=== PATIENT | female | born 1995 | race African-American/Black ===

== ENCOUNTER 2023-08-02 21:51 | Observation (INO) | payer OTHER, SELFPAY ==
[2023-08-02] VITALS (20 sets, daily range): BP systolic 98–105; BP diastolic 64–76; PULSE 107–132; O2SAT 69–100
--- NOTE | 2023-08-02 21:51 | PC.NURSE ---
Pt arrives to unit via ambulance from [facility], reports cramping, nausea, and vomiting, and rates intermittent abdominal pain as 8/10.
[2023-08-02] MEDS: DEXTROSE 5%/LACTATED RINGERS 1,000 ML 999 ML IV CONT (23:15)
[2023-08-02] MEDS: FAMOTIDINE 20 MG/2 ML VIAL IV PUSH (23:28)
[2023-08-02] MEDS: ONDANSETRON INJ 4 MG/2 ML VIAL IV PUSH (23:31)
[2023-08-03] VITALS (11 sets, daily range): BP systolic 83–110; BP diastolic 54–81; PULSE 103–132; O2SAT 99–100; BMI 25.9
--- NOTE | 2023-08-03 00:03 | OBADM ---
This patient, Gary Yanez, admitted to the OB room OB Post 117 for observation. Patient/family oriented to hospital policies and general routines including ID bracelet, bed and alarms, visiting hours, pain management, procedures, bathroom and other care routines, personal items, smoking policy, room service/diet, and visiting hours. Patient/Family are encouraged to report perceived risks to care and to ask questions if they do not understand what they are told or what they should do.
--- NOTE | 2023-08-03 00:30 | PC.NURSE ---
Called Jesús Quintero CNM, update on pt, fluid administration, and pt feeling better. Orders received to discharge pt with instructions when to return to the unit, keep next scheduled appointment, and call Dr. Anguiano's office with questions or concerns.
--- NOTE | 2023-08-03 01:00 | PC.NURSE ---
Pt discharged with instructions on when to return to the unit, keep next scheduled appointment, and call Dr. Anguiano's office with any questions or concerns. No questions at this time, and pt verbalizes understanding.
--- NOTE | 2023-08-03 01:16 | PC.NURSE ---
08/02/2023 @ 2300: FHT doppled at bedside, 150-155 bpm. JAR
--- NOTE | 2023-08-04 17:01 | PM.OBTRLD ---
OB - Triage/Final Diagnosis Visit Information Date of evaluation: 08/02/23 Reason for evaluation: other (nausea and vomiting) Comments/Additional reasons for admission: I have assessed the risk for this patient, Garydennis Yanez, and determined that she would benefit from observation care.
== END 2023-08-03 01:00 | disposition home or self-care (01) ==
PROVIDERS: Admitting Provider Obstetrics & Gynecology; PCP Obstetrics & Gynecology; Visit Provider Obstetrics & Gynecology
DX: O21.2 Late vomiting of pregnancy (principal); Z3A.22 22 weeks gestation of pregnancy
CPT/HCPCS: 96361; 96374; 96375; G0378; G0379; J2405; J7121

== ENCOUNTER 2023-08-31 03:08 | Observation (INO) | payer OTHER, SELFPAY ==
[2023-08-31] VITALS (17 sets, daily range): BP systolic 96–114; BP diastolic 60–73; PULSE 83–103; O2SAT 97–100; BMI 25.4
[2023-08-31 03:39] LABS: Appearance Urine Clear (Clear); Bilirubin Urine Negative (Negative); Blood Urine Negative (Negative); Color Urine Yellow (Yellow); Glucose Urine UA Negative (Negative); Ketones Urine Negative (Negative); Leukocyte Esterase Ur Negative LEU/UL (Negative); Nitrate Urine Negative (Negative); Protein Urine Negative (Negative); Specific Grav Ur 1.007 (1.001-1.035); Urobilinogen Urine 0.2 mg/dL (<2.0)
[2023-08-31 03:41] LABS: Add Urine Microscopic? NO
--- NOTE | 2023-09-01 18:58 | PM.OBTRLD ---
OB - Triage/Final Diagnosis Visit Information Date of evaluation: 08/31/23 Reason for evaluation: other (back pain) Comments/Additional reasons for admission: I have assessed the risk for this patient, Gary Castro Beau, and determined that she would benefit from observation care. Evaluation Laboratory results: Laboratory Tests 08/31/23 03:31 Urine Color Yellow Urine Appearance Clear Urine pH 6.0 Ur Specific [place] 1.007 Urine Protein Negative Urine Glucose (UA) Negative Urine Ketones Negative Ur Blood (Man) Negative Urine Nitrate Negative Urine Bilirubin Negative Urine Urobilinogen 0.2 Leukocyte Esterase Rfl Negative
== END 2023-08-31 04:30 | disposition home or self-care (01) ==
PROVIDERS: Advanced Practice Midwife; Admitting Provider Obstetrics & Gynecology; PCP Obstetrics & Gynecology; Visit Provider Obstetrics & Gynecology
DX: O99.891 Other specified diseases and conditions complicating pregnancy (principal); M54.9 Dorsalgia, unspecified; Z3A.26 26 weeks gestation of pregnancy
CPT/HCPCS: 81003; G0378; G0379

== ENCOUNTER 2023-12-04 17:59 | Inpatient (IN) | payer OTHER, SELFPAY ==
[2023-12-04] VITALS (93 sets, daily range): BP systolic 72–124; BP diastolic 25–98; PULSE 73–134; TEMP 36.6–37.4; O2SAT 96–100
[2023-12-04 20:28] LABS: Basophils Percent Auto 0.3 % (0.2-1.2); Eosinophils Percent Auto 0.2 % (0-4.4); Hematocrit 35.9 % (37.0-47.0); Hemoglobin 12.5 g/dL (12.0-15.0); Immature Granulocyte Absolute 0.07 K/mm3 (0.00-0.031); Immature Granulocyte Percent A 0.5 % (0-0.5); Lymphocytes Absolute Auto 1.81 K/mm3 (0.9-3.2); Mean Corpuscular HGB Conc 34.8 g/dl (32-36); Mean Corpuscular Hemoglobin 30.9 pg (26-34); Mean Corpuscular Volume 88.9 fl (80-100); Mean Platelet Volume 10.3 fl (7.4-10.4); Monocytes Absolute Auto 0.7 K/mm3 (0.1-0.6); Monocytes Percent Auto 5.7 % (2.6-8.5); Neutrophils Absolute Auto 10.2 K/mm3 (1.3-6.7); Neutrophils Percent Auto 79.3 % (45.5-73.1); Platelet Count Result 254 k/mm3 (150-375); Red Blood Count 4.04 M/mm3 (4.2-5.4); Red Cell Distribution Width 13.2 % (11.5-14.5); White Blood Count 12.9 K/mm3 (4.5-10.0)
[2023-12-04] MEDS: LACTATED RINGERS 500 ML 999 ML IV CONT (20:33)
--- NOTE | 2023-12-04 20:37 | LDADM ---
This patient, Gary Yanez, was admitted to Labor/Delivery/Recovery 105 on 12/04/23 at 19:59. Plans for labor, pain management and were discussed with patient. Patient/family oriented to hospital policies and general routines including ID bracelet, bed and alarms, visiting hours, pain management, procedures, bathroom and other care routines, personal items, smoking policy, room service/diet and guest tray routines, infant security routines, and visiting hours. Patient/Family are encouraged to report perceived risks to care and to ask questions if they do not understand what they are told or what they should do. See OBIX for further documentation.
[2023-12-04 20:56] LABS: Rapid Plasma Reagin Non-Reactive (NonReactive)
--- NOTE | 2023-12-04 21:14 | WPDANESEPP ---
Anes - Eval Pre Procedure Procedure: Labor Epidural Date/Time: 12/04/23 21:14 Surgeon: Janelle Preop Diagnosis: Labor Pain Pre Op Diagnosis: Contractions Patient Data Age: 28 Gender: F Height: 1.57 m Weight: 74.5 kg Last Vital Signs Temp 37.4 C 12/04/23 18:30 Pulse 104 H 12/04/23 21:12 BP 102/62 12/04/23 21:12 Pulse Ox 100 12/04/23 21:11 O2 Del Method Room Air 12/04/23 20:36 Allergies Allergy/AdvReac Type Severity Reaction Status Date / Time No Known Allergies Allergy Verified 11/11/23 12:34 Home Medications Medication Instructions Recorded Confirmed Type ferrous sulfate 325 mg (65 mg 325 mg PO DAILY 11/11/23 12/04/23 History iron) tablet vits no.126-ferrous fum 1 tablet PO DAILY 11/11/23 12/04/23 History 28 mg iron-folic acid 800 mcg tablet (Classic ) Laboratory Tests 12/04/23 20:24 WBC 12.9 H K/mm3 (4.5-10.0) RBC 4.04 L M/mm3 (4.2-5.4) Hgb 12.5 g/dL (12.0-15.0) Hct 35.9 L % (37.0-47.0) MCV 88.9 fl (80-100) MCH 30.9 pg (26-34) MCHC 34.8 g/dl (32-36) RDW 13.2 % (11.5-14.5) Plt Count 254 k/mm3 (150-375) MPV 10.3 fl (7.4-10.4) Immature Gran % (Auto) 0.5 % (0-0.5) Neut % (Auto) 79.3 H % (45.5-73.1) Lymph % (Auto) 14.0 L % (18.3-44.2) [place] % (Auto) 5.7 % (2.6-8.5) Eos % (Auto) 0.2 % (0-4.4) Baso % (Auto) 0.3 % (0.2-1.2) Lymph # (Auto) 1.81 K/mm3 (0.9-3.2) [place] # (Auto) 0.7 H K/mm3 (0.1-0.6) Eos # (Auto) 0.0 K/mm3 (0-0.3) Baso # (Auto) 0.0 K/mm3 (0.0-0.1) Abs Immat Gran (auto) 0.07 H K/mm3 (0.00-0.031) Absolute Neuts (auto) 10.2 H K/mm3 (1.3-6.7) Absolute Nucleated RBC 0.000 K/mm3 (0.0-0.012) Nucleated RBC % 0.0 % (0.0-0.2) RPR Non-reactive (NonReactive) HIV 1&2 Ab/P24 Ag 4thGn Pending Blood Type O Positive Antibody Screen Pending : gestational age (WALTER 12/06/23, ) Patient hx anesthesia problems: none Family hx anesthesia problems: none Results Review: All pre-operative results and documents have been reviewed as part of the pre-operative evaluation. [facility] Family History Family History Grandparent Diabetes mellitus Other Lung cancer Social History Social History Substance use: never Spiritual care concerns: No Exam Day of Procedure 12/04/23 21:14 Patient weight: normal Heart: regular rate and rhythm Lungs: normal air movement Airway: Mallampati scale class II Neurological: alert and oriented
[2023-12-04] MEDS: LACTATED RINGERS 1,000 ML 125 ML IV CONT (21:15)
[2023-12-04 21:21] LABS: HIV 1/2 Ab P24 Ag Result Negative (Negative)
[2023-12-04] MEDS: PHENYLEPHRINE 1,000 MCG/10 ML SYRINGE 100 MCG IV PUSH ×2 (21:36→21:41)
[2023-12-04] MEDS: ePHEDrine sulfate INJ 50 MG/ML AMPUL IV PUSH (22:17)
[2023-12-05] VITALS (135 sets, daily range): BP systolic 92–126; BP diastolic 39–96; PULSE 76–162; RESP 16; TEMP 36.4–38; O2SAT 94–100
[2023-12-05] MEDS: LACTATED RINGERS 1,000 ML 125 ML IV CONT (03:24)
[2023-12-05] MEDS: ONDANSETRON INJ 4 MG/2 ML VIAL IV PUSH (03:53)
--- NOTE | 2023-12-05 04:43 | WPDHPUPDATE1 ---
History and Physical Update Update Date/Time: 12/05/23 04:43 28-year-old 0 at term who presented in labor. Artificial rupture membranes was performed when she was complete. Fluid was clear. Complete, reassuring status. Expected management. History and Physical has been reviewed, including an updated exam of the patient. There are NO changes in the patient's condition. Risks, benefits, and alternatives have been discussed and questions answered. Patient agrees to proceed with procedure.
[2023-12-05] MEDS: OXYTOCIN 30 UNITS/NS 500 ML 30 UNITS/500 ML BAG 999 UNITS IV CONT (07:47)
--- NOTE | 2023-12-05 07:58 | PM.OBPRVD ---
OB - Vaginal Delivery Note Procedure Delivery date: 12/05/23 Induction method: None Delivery augmentation: Rupture of Membranes Delivery monitor: External FHT and External Uterine Route of delivery: Episiotomy description: None Laceration Description: None Specimen: Yes Quantitative Blood Loss (ml): 100 Anesthesia type: Epidural Disposition: Floor Complications: Other complications (meconium, associate manager affiliate marketing at bs) Baby Date of : 12/05/23 Time of : 07:46 Gestational Age by Date: 39 gender: Male presentation: vertex position: Right Occiput Anterior Placenta delivery description: Spontaneous Cord Vessel Description: 3 Vessels score one minute: 5 score five minutes: 8 Narrative: baby delivered without difficulty, to warmer for evaluation, associate manager affiliate marketing at bs
[2023-12-05] MEDS: OXYTOCIN 30 UNITS/NS 500 ML 30 UNITS/500 ML BAG 125 UNITS IV CONT (08:15)
[2023-12-05] MEDS: IBUPROFEN 600 MG TABLET PO ×3 (09:20→23:58)
[2023-12-05] MEDS: BENZOCAINE 20% AER SPR (*SP) 56 GM CAN 1 SPRAY TOPICAL (10:03)
[2023-12-05] MEDS: WITCH HAZEL 40 PADS 1 PAD TOPICAL (10:03)
--- NOTE | 2023-12-05 10:42 | OBPPTRN ---
Patient transferred to post room #286 via wheelchair. Support person present. Oriented to unit, room, information board, rooming in, admission packet and security measures. Patient verbalizes understanding.
[2023-12-05] MEDS: ACETAMINOPHEN 325 MG TABLET 650 MG PO (11:20)
[2023-12-05] MEDS: DOCUSATE SODIUM 100 MG CAPSULE PO (16:19)
[2023-12-06 03:50] VITALS: BP 126/78; PULSE 81; RESP 18; TEMP 36.8
[2023-12-06] MEDS: ACETAMINOPHEN 325 MG TABLET 650 MG PO ×2 (03:50→18:36)
[2023-12-06 04:06] LABS: Hematocrit 34.2 % (37.0-47.0); Hemoglobin 11.7 g/dL (12.0-15.0)
--- NOTE | 2023-12-06 07:52 | PM.OBPNVD ---
OB - PN: Subj Subjective Date/time seen: 12/06/23 07:52 Patient comments: no complaints, pain well controlled, incisional pain, tolerating diet and flatus present OB - PN: Obj Data Labs 12/06/23 03:43 Labs: Laboratory Results - last 24 hr 12/06/23 03:43 Hgb 11.7 L Hct 34.2 L OB - PN A/P Plan day: 1 Plan: routine care Comments: No problems, routine care Time Spent With Patient Time: Total time spent is greater than 50% in coordination of care (as documented) at patient's floor/unit and/or counseling patient: Exam Const: General: comfortable, no acute distress and alert Resp: Effort & Inspection: normal respiratory effort Auscultation: no crackles, no rales and no rhonchi Cardio: Rate: regular rate Heart sounds: no click, no murmurs and no rubs GI: Inspection: non-distended GI Palp: No Tenderness to palpation present (GI) Auscultation: normal bowel sounds Other: Incision - CDI Extrem: General: normal to inspection, no pedal edema and no calf tenderness
[2023-12-06] MEDS: MULTIVIT/MIN/PREN/FOL AC/IRON TABLET 1 TAB PO (09:40)
[2023-12-06] MEDS: DOCUSATE SODIUM 100 MG CAPSULE PO ×2 (09:40→16:32)
[2023-12-06 09:45] VITALS: BP 114/67; PULSE 88; RESP 16; TEMP 36.9; O2SAT 99
[2023-12-06] MEDS: IBUPROFEN 600 MG TABLET PO (18:36)
--- NOTE | 2023-12-06 18:45 | PC.NURSE ---
1844- This RN went to introduce myself. Ask pt if she has been tracking feedings and stools on flowsheet, she stated that she is tracking them on her phone and that we are putting them on the paper because it is confusing to me. This RN offered to explain flowsheet however, pt refused.This RN also explained that it was near time to feed again and pt stated I'm not feeding til around 193, when he sleeping, he aint hungry! Again this RN attempeted to explain feeding frequency for bottle fet infant, however pt was on the phone with someone and stated, Ok, whatever. and rolled over to her side.
[2023-12-06 19:30] VITALS: BP 113/64; PULSE 78; RESP 16; TEMP 36.8
[2023-12-07] MEDS: IBUPROFEN 600 MG TABLET PO (07:48)
[2023-12-07] MEDS: ACETAMINOPHEN 325 MG TABLET 650 MG PO (07:49)
[2023-12-07] MEDS: DOCUSATE SODIUM 100 MG CAPSULE PO (07:50)
[2023-12-07 08:00] VITALS: BP 105/70; PULSE 88; RESP 16; TEMP 36.8; O2SAT 96
--- NOTE | 2023-12-07 08:37 | PM.OBPNVD ---
OB - PN: Subj Subjective Date/time seen: 12/07/23 08:37 Patient comments: no complaints, pain well controlled and tolerating diet OB - PN: Obj Data Labs 12/06/23 03:43 OB - PN A/P Plan day: 2 Plan: routine care and discharge home Time Spent With Patient Time: Total time spent is greater than 50% in coordination of care (as documented) at patient's floor/unit and/or counseling patient: Exam Const: General: comfortable and no acute distress Resp: Effort & Inspection: normal respiratory effort Auscultation: no rales, no rhonchi and no wheezes Cardio: Rate: regular rate Heart sounds: no click, no murmurs and no rubs GI: GI Palp: Yes Soft to palpation and No Tenderness to palpation present (GI) Auscultation: normal bowel sounds Extrem: General: normal to inspection, no pedal edema and no calf tenderness
--- NOTE | 2023-12-07 08:39 | PM.OBDSVD ---
DS: Admitting Diagnosis Discharge Date December 07, 2023 Admitting Diagnosis term , labor DS: Discharge Diagnosis Discharge Diagnosis (1) Term delivered: Code(s): O80 - Encounter for full-term uncomplicated delivery Status: Acute OB - DS: Summary OB Procedures : None OB Procedures Intrapartum: Spontaneous Vag Delivery OB Procedures: : None Peripartum Data Laceration Description: None Episiotomy description: None Time Spent with Patient Time attestation: Total time spent providing and/or coordinating discharge services: DS: Data Data Completed and Pending Pending studies at discharge: Pending at discharge 12/05/23 07:48 Surgical [PTH] Routine Discharge Plan Discharge Discharging Clinician: Timmy Luis Patient Disposition: Home, Self-Care Activity: pelvic rest Diet: regular Patient Instructions: Antibiotic Form Stand Alone Forms: General Discharge Information Follow-up/Referrals: Timmy Luis MD [Physician] - Discharge Medications: Continued ferrous sulfate 325 mg (65 mg iron) Tablet 325 mg PO DAILY Classic 28 mg iron- 800 mcg Tablet 1 tablet PO DAILY Date of admission: 12/04/23 20:15 Primary Care Provider: UNKNOWN,DOCTOR Admitting Provider: Timmy Luis Attending physician on admission: Timmy Luis Condition: Stable
--- NOTE | 2023-12-07 12:49 | PC.NURSE ---
1245 care plan put in by mistake, wrong patient. Please disregard.
[2023-12-08 11:37] VITALS: BP 128/83; PULSE 74; RESP 18; TEMP 36.8; O2SAT 100
== END 2023-12-07 12:10 | disposition home or self-care (01) | DRG 560 ==
LOC: ANHLDR 22:12 → ANHOB2 12-05 11:25
PROVIDERS: Advanced Practice Midwife; Admitting Provider Obstetrics & Gynecology; Visit Provider Obstetrics & Gynecology
DX: O75.2 Pyrexia during labor, not elsewhere classified (principal); O77.0 Labor and delivery complicated by meconium in amniotic fluid; O63.1 Prolonged second stage (of labor); Z3A.39 39 weeks gestation of pregnancy; Z37.0 Single live birth
CPT/HCPCS: 36415; 85014; 85018; 85025; 86592; 86703; 86850; 86900; 86901; 88307; A9270; G0378; G0379; G0432; J2371; J2405; J2590; J2795; J7120

== ENCOUNTER 2024-05-09 10:40 | Emergency (ER) | payer OTHER, SELFPAY ==
--- NOTE | ~2024-05-09 | XR_ITS ---
EXAMINATION: XR knee RT 3V DATE: 05/09/2024 13:29 INDICATION: Right knee pain, swelling and limited range of motion post injury TECHNIQUE: Anteroposterior, 2 oblique and crosstable lateral views of the right knee were obtained COMPARISON: None. FINDINGS: Alignment is normal. No fracture. There is at least mild joint space narrowing at the medial compart ment which could be underestimated on nonweightbearing imaging. Moderate-sized right knee joint effus ion without layering lipohemarthrosis. Soft tissues are unremarkable. IMPRESSION: 1. Moderate-sized right knee joint effusion. No acute osseous abnormality. 2. At least mild joint space narrowing in the medial compartment the right knee could be due to osteo arthritis and cartilage loss or potentially medial meniscal tear or extrusion. Reviewed, dictated and finalized at location B. INE TOOL TECHNOLOGY INSTRUCTOR IMPRESSION: 1. Moderate-sized right knee joint effusion. No acute osseous abnormality. 2. At least mild joint space narrowing in the medial compartment the right knee could be due to osteoarthritis and cartilage loss or potentially medial menisc al tear or extrusion.
[2024-05-09 11:29] VITALS: BP 125/79; PULSE 96; RESP 18; TEMP 36.7; O2SAT 100
--- OUTSIDE RECORDS SUMMARY | 2024-05-09 12:04 | XMS_ITS | CONTINUITY OF CARE DOCUMENT ---
Author Name sandra flores Address Unknown Organization [facility] Address [address] [place] [address] Phone [phone] Care Team Providers Care Community Re[employer]ment Act Officer Name Role Phone Toshia Peterson MD Unavailable Toshia Peterson MD Unavailable [phone] INSURANCE PROVIDERS Payer name Policy type / Coverage type [place] [employer] [place] Medicaid [id number]
--- OUTSIDE RECORDS SUMMARY | 2024-05-09 12:04 | XMS_ITS | Clinical Summary ---
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 Gender Identity Not on file Sexual Orientation Not on file Last Filed Vital Signs Vital Sign Reading Time Taken Comments Blood Pressure 125/74 12/17/2022 9:54 PM CDT Pulse 118 12/17/2022 9:54 PM CDT Temperature 36.5 C (97.7 F) 12/17/2022 9:54 PM CDT Respiratory Rate 18 12/17/2022 9:54 PM CDT Oxygen Saturation 98% 12/17/2022 9:54 PM CDT Inhaled Oxygen Concentration - - Weight 57.2 kg (126 lb) 12/17/2022 9:54 PM CDT Height 157.5 cm (5' 2 ) 12/17/2022 9:54 PM CDT Body Mass Index 23.05 12/17/2022 9:54 PM CDT Plan of Treatment Health Maintenance Due Date Last Done Comments Hepatitis C Virus (HCV) Screening 1996 Pap Smear 2017 Influenza Immunization (#1) 2023 SARS-COV-2 Immunization ( season) 2023 04/03/2022, 03/12/2022 Respiratory Syncytial Virus (RSV) Immunization (Adult) (1 - 1-dose 75+ series) 06/03/2071 Hepatitis B Immunization Completed 997, 1996, 1996 DTaP/Tdap/Td Immunization Discontinued 2006, 07/09/2001, 11/23/1997, Additional history exists TdaP Immunization Completed 12/11/2006 Human Papillomavirus (HPV) Immunization Discontinued 09/08/2007, 02/16/2007, 12/11/2006 Meningococcal Immunization (ACWY) Aged Out 11/21/2010 No longer eligible based on patient's age to complete this topic Pneumococcal Immunization Combined Aged Out No longer eligible based on patient's age to complete this topic Rotavirus Immunization Aged Out No lo nger eligible based on patient's age to complete this topic Insurance MEDICAID [place] Care Teams Box Spring Frame Builder Relationship Specialty Start Date End Date Provider, None [place] PCP - General 10/25/21
--- OUTSIDE RECORDS SUMMARY | 2024-05-09 12:04 | XMS_ITS | Data Portability ---
Author Organization [facility] Address [address] [place] [address] Assessment No assessment recorded. Plan of Treatment Reminders Order Date Submit Date Provider Last Modified By Organization Details Last Modified Time Details Appointments None record ed. Lab None record ed. Referral None record ed. Procedures None record ed. Surgeries None record ed. Imaging None record ed. Medication Orders None record ed. Patient TargetsNo targets recorded. Patient InstructionsNo instructions recorded. Reason for Referral None Reported. Results Created Date Observation Date Name Description Value Unit Range Abnormal Flag Note LastModifiedBy Organization Detail LastModifiedTime 10/28/19 24 10/28/2023 CULTU RE: URINE result report SEE RESULT S BELOW Test: Cultu re: Urine Speci men Sourc e: Urine - Clean Catch Speci men Type: Urine Speci men Date: 2023 1652 Resul t Date: 2023 0443 Resul t Statu s: Final resul t Abnor mal: No Resul ting Lab: [facility] [address] [facility] [address] Tel: CULTU RE ----- ----- ----- --- No growt h in 1 day (dete ction level of 10,00 0 colon ies / ml.) Not Available [facility] (Lab) [address], [place], [address], 10/30/2023 07:43:20 11/11/19 24 11/11/2023 CULTU RE: GROUP B STREP SCREE N result report SEE RESULT S BELOW Test: Cultu re: Group B Strep Scree n - Vagin al/Re ctal Speci men Sourc e: Vagin a/Rec marky Speci men Type: Vagin al/Re ctal Speci men Date: 2023 1134 Resul t Date: 2023 1356 Resul t Statu s: Final resul t Abnor mal: No Resul ting Lab: [facility] [address] [facility] [address] [facility] [address] [facility] [address] Tel: CULTU RE ----- ----- ----- --- No Group B strep isola ines at 2 days (essence ctive broth enhan cemen t) Not Available [facility] (Lab) [address], [place], [address], 11/14/2023 15:00:57 Result Notes None recorded. Problems Name Problem SNOMED Code Status Onset Date Resolution Date Notes Provider Name and Address Organization Details Recorded Time [id number] Active 024 Marisela De Luna [facility] 17:30:29 Problem Notes None recorded. Procedures Surgical History Date Name Laterality Status Provider Name and Address Organization Details Recorded Time 05/06/2023 Date of Last Pap Smear completed Gloria Blum [facility] 12/02/2023 09:18:55 Imaging Results None recorded. Procedure Notes None recorded. Medical Equipment None Reported. Allergies No known drug allergies Medications Name Sig Start Date Stop Date Status Note LastModified by Organization Details LastModified Time famotidine 20 mg tablet TAKE 1 TABLET BY MOUTH TWICE A DAY 10/28 completed Not Available Not Available Not Available iron active Not Available Not Availa ble Not Available active Not Available Not Avai lable Not Available Vitals Date Recorded Body height Body mass index (BMI) Body weight Systolic blood pressure Diastolic blood pressure Provider Name and Address Organization Details Last Updated DateTime 11/11/2023 157.48 cm 29.3 kg/m2 20042.78 g 125 mm[Hg] 80 mm[Hg] Marisela De Luna [facility] 4 10:37:53 Date Recorded Body height Body mass index (BMI) Body weight Systolic blood pressure Diastolic blood pressure Provider Name and Address Organization Details Last Updated DateTime 11/20/2023 157.48 cm 29.7 kg/m2 68181.12 g 121 mm[Hg] 82 mm[Hg] [facility] 4 12:12:23 Date Recorded Body height Body mass index (BMI) Body weight Systolic blood pressure Diastolic blood pressure Provider Name and Address Organization Details Last Updated DateTime 11/25/2023 157.48 cm 30 kg/m2 81911.43 g 118 mm[Hg] 74 mm[Hg] [facility] 4 10:14:06 Date Recorded Body height Body mass index (BMI) Body weight Systolic blood pressure Diastolic blood pressure Provider Name and Address Organization Details Last Updated DateTime 12/02/2023 157.48 cm 30.2 kg/m2 80404.74 105 g 114 mm[Hg] 76 mm[Hg] [facility] 4 10:29:41 Date Recorded Body height Body mass index (BMI) Body weight Systolic blood pressure Diastolic blood pressure Provider Name and Address Organization Details Last Updated DateTime 02/01/2024 157.48 cm 26.3 kg/m2 36685.3 g 117 mm[Hg] 73 mm[Hg] [facility] 4 12:58:12 Social History Question Answer Notes LastModified by Organizat ion Details LastModified Time Tobacco Smoking Status Never Smoker [facility] 05/06/2023 12:37:40 Do You Have An Advance Directive? No [email or web address] Information n ot available 02/01/2024 What Is Your Level Of Alcohol Consumption? Occasional Information not available 05/06/2023 Are You Blind Or Do You Have Difficulty Seeing? No Information n ot available 05/06/2023 What Is Your Level Of Caffeine Consumption? Moderate Information not available 05/29/2023 How Much Tobacco Do You Chew? None Information not available 05/06/2023 In The 14 Days Before Symptom Onset, Have You Had Close Contact With A Laboratory-confirm ed COVID-19 While That Case Was Ill? No Information n ot available 05/06/2023 In The 14 Days Before Symptom Onset, Have You Had Close Contact With A Person Who Is Under Investigation For COVID-19 While That Person Was Ill? No Information not available 05/06/2023 Have You Been To An Area Known To Be High Risk For COVID-19? No Information not available 05/06/2023 Are You Deaf Or Do You Have Serious Difficulty Hearing? No Information not available 05/06/2023 What Type Of Diet Are You Following? REGULAR Information n ot available 05/06/2023 What Is The Highest Grade Or Level Of School You Have Completed Or The Highest Degree You Have Received? [id number] Information not available 05/06/2023 Are There Any Guns Present In Your Home? No Information not available 05/06/2023 Do You Use Your Seat Belt Or Car Seat Routinely? Yes Information not available 02/01/2024 Do You Have Smoke And Carbon Monoxide Detectors In Your Home? Yes Information not available 05/06/2023 How Much Tobacco Do You Smoke? No Information not available 05/06/2023 Do You Feel Stressed (tense, Restless, Nervous, Or Anxious, Or Unable To Sleep At Night)? [id number] Information not available 05/29/2023 Do You Use Any Illicit Or Recreational Drugs? No Information not available 05/06/2023 Have You Used IV Drugs? No Information not available 05/06/2023 Sex: Unknown Functional Status Question Answer Note LastModified by Organizat ion Details LastModified Time Do you have difficulty walking or climbing stairs? No Information not available 05/06/2023 Are you able to walk? YESWOREST Information not available 05/06/2023 Are you able to care for yourself? Yes Information not available 05/06/2023 Do you have difficulty dressing or bathing? No Information not available 05/06/2023 What is your exercise level? Moderate Information not available 05/06/2023 Mental Status None recorded. Family History Relationship Description Onset Age of this Age Resolved Age Notes LastModified by Organization Details LastModified Time Maternal Grandmother Malignant neoplasm of brain [email or web address] Not available 2023 12:51:17 Maternal Grandfather Malignant tumor of lung [email or web address] Not available 2023 14:16:26 Maternal Aunt Malignant tumor of breast [email or web address] Not available 2023 14:16:26 Medical History Condition Response Asthma Y Gynecological History Statement/Question Response Flow Moderate Date of LMP 01/11/2024 N Was last menstrual period normal Y STIs/STDs N HPV Vaccine Y Duration of Flow (days) 5 Current Control Method Other Sexually Active? Y Menses Monthly Y Age of first menstrual cycle 15 Date of Last Pap Smear 05/06/2023 Sexual Problems? N LMP Definite N Obstetrics History GPAL:G 3 P 1 0 2 1 Type Value Full Term 1 Induced 1 Spontaneous 1 Living 1 Total 3 Past Encounters Encounter ID Performer Location Encounter Start Date Encounter Closed Date Diagnosis/Indication Diagnosis SNOMED-CT Code Diagnosis ICD10 Code Diagnosis Note [id number] Iva Kennedy [facility] [address],[facility] [place] [address] 05/06/2023 11:29:45 05/06/2023 12:13:23 [id number] WILLIAMS ABRAHAM MD [facility] [address] [address] 05/06/2023 11:30:14 05/10/2023 00:05:03 test positive 384679887 Z32.01 1. Exam today within normal limits.2. Ultrasound today confirms GA and viability. EDC . GC/Clamydi a testing done: will f/u as indicated. 4. ACOG guidelines and plan of care for reviewed with patient. All questions answered.5 . Return to office at 12 weeks for new OB visit6. Will need new OB labs at next visit.7. Genetic screening: desires. [id number] Iva Kennedy [facility] [address] [address] 05/29/2023 12:24:12 05/29/2023 14:37:58 screening 170714184 Z36.82 Z3A.12 [id number] MD Pamela [facility] [address],[place] [address] 05/29/2023 12:24:34 06/04/2023 13:34:21 Routine care 828741079 Z34.90 [id number] MD Pamela ROMERO [address],[place] [address] 06/24/2023 09:50:03 06/24/2023 10:25:31 Routine care 983998505 Z34.90 [id number] [facility] [address],[place] [address] 07/22/2023 10:57:32 07/22/2023 12:08:47 screening for malformation 178704171 Z36.3 Z3A.20 [id number] MD Pamela ROMERO [address],[place] [address] 07/22/2023 10:58:21 07/23/2023 06:28:39 Lightheadedness 062251579 R42 Gestation period, 20 weeks 42528786 Z3A.20 [id number] WILLIAMS ABRAHAM MD [facility] [address] [address] 08/19/2023 10:51:45 08/19/2023 12:23:39 Gastroesophageal reflux disease 988323119 K21.9 Lightheadedness 02620405 8 R42 Gestation period, 24 weeks 630399774 Z3A.24 MD Pamela ROMERO [address] [address] 09/16/2023 14:17:09 09/16/2023 15:08:44 Routine care 507219623 Z34.90 [id number] MD Pamela ROMERO [address] [address] 09/29/2023 15:46:58 09/29/2023 16:33:21 Anemia of 84000317 O99.019 - Hgb 10.4 > 10.9- continue PO Fe Gestation period, 30 weeks 05800430 Z3A.30 [id number] MD Pamela ROMERO [address],[place] [address] 10/14/2023 10:04:52 10/14/2023 10:36:34 Anemia of 48215238 O99.019 - Hgb 10.4 > 10.9- continue PO Fe Gestation period, 32 weeks 0173719 Z3A.32 - continue PNV [id number] WILLIAMS ABRAHAM MD [facility] [address],[place] [address] 10/28/2023 10:09:29 10/28/2023 10:55:31 Urinary symptoms 442633539 R39.9 Gestation period, 34 weeks 11675808 Z3A.34 [id number] WILLIAMS ABRAHAM MD [facility] [address],[place] [address] 11/11/2023 10:21:45 11/11/2023 11:10:35 Routine care 675939996 Z34.90 - continue PNV [id number] MD Pamela ROMERO [address] [address] 11/20/2023 11:59:14 11/20/2023 12:36:11 Routine care 733569988 Z34.90 - continue PNV [id number] WILLIAMS ABRAHAM MD [facility] [address],[place] [address] 11/25/2023 10:05:38 11/25/2023 11:05:53 Routine care 865813249 Z34.90 - continue PNV [id number] MD Rubi [place] [address],[place] [address] 12/02/2023 10:19:36 12/02/2023 10:50:07 Routine care 227507942 Z34.90 - continue PNV- induction scheduled [id number] MD Pamela ROMERO [address] [address] 02/01/2024 12:51:10 02/01/2024 14:15:35 care 872447787 Z39.2 S/p 8 weeks ago here today for a visit.1. Patient recovering well2. Plans to continue formula feeding3. Interested in condoms for contracept ion at this time. Risks, benefits, and alternativ es reviewed with the patient4. Patient instructed to follow up in 12 months for well woman exam unless need arises prior Health Concerns Section Related Observation LastModified by Organization Detai ls LastModified Time None Recorded Concern Status LastModified by Organization Details LastModified Time None Recorded Advance Directives Directive N: Payers Encounter Date Sequence Insurance Name Policy Number Policy Navarro Covered Member ID Navarro Member ID Guarantor Name 11/11/2023 1 [facility] (MEDICAID HMO) [id number] Gary McSwyne [id number] Gary McSwyne 11/20/2023 1 [facility] (MEDICAID HMO) [id number] Gary McSwyne [id number] Gary McSwyne 11/25/2023 1 [facility] (MEDICAID HMO) [id number] Gary McSwyne [id number] Gary McSwyne 12/02/2023 1 [facility] (MEDICAID HMO) [id number] Gary McSwyne [id number] Gary McSwyne 02/01/2024 1 [facility] (MEDICAID HMO) [id number] Gary McSwyne [id number] Gary McSwyne Notes Date Note Type Note Provider Name and Address Organization Details Recorded Time 02/01/2024 text/html S/P on 12/04 at 39 weeks gestation. was uncomplicated. Complications with delivery: none. Patient denies any specific problems since delivery. Patient overall feeling well. Patient is formula feeding without problems. Has not had a period yet. No bleeding. Bowel and bladder function are normal. Pap due 2026. Denies any signs or symptoms of depression. Is coping with parenting well. Patient has not been sexually active since delivery. Patient is not interested in hormonal contraception at this time. WILLIAMS ABRAHAM MD [address], [place], [address], [place] [facility] 02/01/2024 14:13:04 OBGyn Episode Ob Episode Information Episode Created Date Number of Fetuses Patient Bloodtype Patient rh Status Prepregnancy Weight lbs Domestic Partner Domestic Partner Phone Father Name Roller Operator Status 05/06/19 24 1 CLOSED Fetus Data First Name Last Name Admitted to NICU Weight (g) Sex Living Outcome Pediatric Complications Fetus ID Race Codes Race Delivery Type , Spontane ous [id number] Darrell Calculation Initial Darrell Date Initial Exam Date Initial Exam Provider Initial Ultrasound Date Last Menstrual Period Date Ultra Sound Weeks Gestation 0 Eighteen To Twenty Week Darrell Update Ultra Sound Date Fundal Height At Umbil Quickening Date Ultra Sound Latest Weeks Gestation Final Darrell Confirmed By Final Darrell Confirmed Date Final Darrell Date Ultra Sound Latest Days Gestation 0 0 Menstrual History Last Menstrual Date Menses Monthly On Bcp Conception Prior Menses Frequency Hcg Plus Date Menarche Onset Age Delivery Information Delivery Date Delivery Type Labor Anesthesia Weeks Gestation Incision Type Labor Labor Length Hrs Delivered By Post Complications Tubal Sterilization Discharge Date Comments 3 Discharge Information Feeding Method Contraceptive Method Maternal HG B and HCT Levels Ob Episode Information Episode Created Date Number of Fetuses Patient Bloodtype Patient rh Status Prepregnancy Weight lbs Domestic Partner Domestic Partner Phone Father Name Roller Operator Status 06/03/19 24 1 130 CLOSED Fetus Data First Name Last Name Admitted to NICU Weight (g) Sex Living Outcome Pediatric Complications Fetus ID Race Codes Race Delivery Type 3739.86 604 M true Full Term [id number] Vaginal Delivery Darrell Calculation Initial Darrell Date Initial Exam Date Initial Exam Provider Initial Ultrasound Date Last Menstrual Period Date Ultra Sound Weeks Gestation 12/06/2023 06/03/2023 05/06/2023 03/02/2023 9 Eighteen To Twenty Week Darrell Update Ultra Sound Date Fundal Height At Umbil Quickening Date Ultra Sound Latest Weeks Gestation Final Darrell Confirmed By Final Darrell Confirmed Date Final Darrell Date Ultra Sound Latest Days Gestation 0 [email or web address] 06/04/2023 12/06/19 24 0 Pre- Flowsheet Flowsheet Date 05/29/2023 Leiva Score Blood Edema Fundus Height Fundus Units Glucose Ketones Leukocytes Nitrite Labor Signs Protein Cervic Dilation Cervic Effacement Cervic Station Type Weight in lbs Pre/Post Dialysis Refused Weight 133.819734851312 BP Diastolic BP Location Tested BP Systolic BP Type 80 114 Fetus Heart Rate Present A 154 Fetus Movement Comments Presents to establish prenat al care. so far uncomplicated. No cramping or bleeding. Some nausea, overall controlled. PMH/PSH negative. NB/NT wnl today. Desires NIPT, will draw with new OB labs today. RTC 4 weeks for routine OB care. Flowsheet Date 06/24/2023 Leiva Score Blood Edema Fundus Height Fundus Units Glucose Ketones Leukocytes Nitrite Labor Signs Protein Cervic Dilation Cervic Effacement Cervic Station neg none 16 none trace Type Weight in lbs Pre/Post Dialysis Refused Weight 136.527163070638 BP Diastolic BP Location Tested BP Systolic BP Type 74 L arm 114 sitting Fetus Heart Rate Present A 150 Fetus Movement A No Comments Doing well, no cramping or b leeding. LR male NIPT! Other OB labs wnl. Discussed anatomy US for next visit. RTC 4 weeks Flowsheet Date 07/22/2023 Leiva Score Blood Edema Fundus Height Fundus Units Glucose Ketones Leukocytes Nitrite Labor Signs Protein Cervic Dilation Cervic Effacement Cervic Station Type Weight in lbs Pre/Post Dialysis Refused BP Diastolic BP Location Tested BP Systolic BP Type Fetus Heart Rate Present Fetus Movement Comments Flowsheet Date 07/22/2023 Leiva Score Blood Edema Fundus Height Fundus Units Glucose Ketones Leukocytes Nitrite Labor Signs Protein Cervic Dilation Cervic Effacement Cervic Station Type Weight in lbs Pre/Post Dialysis Refused Weight 142.362791635294 BP Diastolic BP Location Tested BP Systolic BP Type 76 109 Fetus Heart Rate Present A 151 Fetus Movement A Yes Comments Good movement. Having some dizziness episodes, no clear triggers. Reports these were happening though less frequent prior to . Gets nauseous, lightheaded. Will check labs today, ordered Holter monitor as well. Anatomy US today, complete and normal EFW 61%. Vertex. RTC 4 weeks. Flowsheet Date 08/19/2023 Leiva Score Blood Edema Fundus Height Fundus Units Glucose Ketones Leukocytes Nitrite Labor Signs Protein Cervic Dilation Cervic Effacement Cervic Station Type Weight in lbs Pre/Post Dialysis Refused Weight 147.637201977376 BP Diastolic BP Location Tested BP Systolic BP Type 75 113 Fetus Heart Rate Present A 150 Fetus Movement A Yes Comments Patient was in the hospital recently for stomach pain and acid reflux. Will start tums and pepcid. Has not yet started Fe supplement. Was not able to get Holter monitor due to insurance, however dizziness episodes have improved. will recheck h/h with GCT, discussed with patient. RTC 4 weeks. Flowsheet Date 09/16/2023 Leiva Score Blood Edema Fundus Height Fundus Units Glucose Ketones Leukocytes Nitrite Labor Signs Protein Cervic Dilation Cervic Effacement Cervic Station Type Weight in lbs Pre/Post Dialysis Refused Weight 151.836629536413 BP Diastolic BP Location Tested BP Systolic BP Type 78 117 Fetus Heart Rate Present A 150 Fetus Movement A Yes Comments Good movement. No cram ping or bleeding. GCT and labs today. Dizziness improving since starting Fe supplement. Discussed tdap vaccine. RTC 2 weeks. Flowsheet Date 09/29/2023 Leiva Score Blood Edema Fundus Height Fundus Units Glucose Ketones Leukocytes Nitrite Labor Signs Protein Cervic Dilation Cervic Effacement Cervic Station Type Weight in lbs Pre/Post Dialysis Refused Weight 156.241638620406 BP Diastolic BP Location Tested BP Systolic BP Type 78 112 Fetus Heart Rate Present A 140 Fetus Movement A Yes Comments Doing well, baby active. No cramping or bleeding. Passed GCT, HGb improved on Fe. Continue PO Fe. Getting Tdap vaccine next visit. Planning on exclusively pumping, discussed resources. RTC 2 weeks. Flowsheet Date 10/14/2023 Leiva Score Blood Edema Fundus Height Fundus Units Glucose Ketones Leukocytes Nitrite Labor Signs Protein Cervic Dilation Cervic Effacement Cervic Station Type Weight in lbs Pre/Post Dialysis Refused Weight 157.198125742347 BP Diastolic BP Location Tested BP Systolic BP Type 76 111 Fetus Heart Rate Present A 150 Fetus Movement A Yes Comments Good movement. No cram ping or bleeding. Received Tdap vaccine. Discussed preadmission appointment. RTC 2 weeks. Flowsheet Date 10/28/2023 Leiva Score Blood Edema Fundus Height Fundus Units Glucose Ketones Leukocytes Nitrite Labor Signs Protein Cervic Dilation Cervic Effacement Cervic Station 34 cm Type Weight in lbs Pre/Post Dialysis Refused Weight 160.103636461825 BP Diastolic BP Location Tested BP Systolic BP Type 76 114 Fetus Heart Rate Present A 155 Fetus Movement A Yes Comments Doing well. Patient reports urinary frequency and urgency as well as pain prior to urination. Will send for culture. Good movement. No cramping or bleeding. Discussed GBS swab for next visit. RTC 2 weeks. Flowsheet Date 11/11/2023 Leiva Score Blood Edema Fundus Height Fundus Units Glucose Ketones Leukocytes Nitrite Labor Signs Protein Cervic Dilation Cervic Effacement Cervic Station 0cm 50% -2 Type Weight in lbs Pre/Post Dialysis Refused Weight 160.264429601804 BP Diastolic BP Location Tested BP Systolic BP Type 80 125 Fetus Heart Rate Present A 145 Fetus Movement A Yes Comments Good movement. No cram ping or bleeding. Now planning on formula feeding. GBS collected today. SVE closed. RTC 2 weeks. Flowsheet Date 11/20/2023 Leiva Score Blood Edema Fundus Height Fundus Units Glucose Ketones Leukocytes Nitrite Labor Signs Protein Cervic Dilation Cervic Effacement Cervic Station 0cm 50% -2 Type Weight in lbs Pre/Post Dialysis Refused Weight 162.571047061546 BP Diastolic BP Location Tested BP Systolic BP Type 82 121 Fetus Heart Rate Present A 150 Fetus Movement A Yes Comments Doing well. No ctx, LOF, VB. No issues since last visit. GBS negative. SVE closed. RTC 1 week. Flowsheet Date 11/25/2023 Leiva Score Blood Edema Fundus Height Fundus Units Glucose Ketones Leukocytes Nitrite Labor Signs Protein Cervic Dilation Cervic Effacement Cervic Station 0cm 50% -2 Type Weight in lbs Pre/Post Dialysis Refused Weight 163.002023627889 BP Diastolic BP Location Tested BP Systolic BP Type 74 118 Fetus Heart Rate Present Fetus Movement A Yes Comments Good movement. No ctx, LOF, VB. SVE 0.5cm. Would like EIL on 12/06 if not delivered prior. WIll schedule cytotec induction. Labor precautions reviewed. RTC 1 week. Flowsheet Date 12/02/2023 Leiva Score Blood Edema Fundus Height Fundus Units Glucose Ketones Leukocytes Nitrite Labor Signs Protein Cervic Dilation Cervic Effacement Cervic Station neg trace none trace 1cm 70% -2 Type Weight in lbs Pre/Post Dialysis Refused 165.674325716511 BP Diastolic BP Location Tested BP Systolic BP Type 76 L arm 114 sitting Fetus Heart Rate Present A 150 Fetus Movement A Yes Comments Patient c/o of Wilmot Taylor , thinks contractions but isnt sure. Hands get numb and tingling feeling. Induction scheduled for 12/06. SVE 1.5cm and membrane sweep performed today. Labor precautions reviewed. Menstrual History Last Menstrual Date Menses Monthly On Bcp Conception Prior Menses Frequency Hcg Plus Date Menarche Onset Age 1203/02/2023 Genetic Screening And Infection History Question Response Note Mental Retardation/Autism false Patient's Age Will Be 35 Years Or Older At Estim ated Date of Delivery false Thalassemia (French, [place] Citizen, Mediterranean, Or Background): MCV < 80 false Neural Tube Defect (Meningomyelocele, Spina Bifi da, Or Anencephaly) false Congenital Heart Defect false Down Syndrome false Greyson-Sachs (eg, Catholic, Cajun, Frisian-[place]) f alse Danial Disease false Sickle Cell Disease Or Trait () false Hemophilia Or Other Blood Disorders false Muscular Dystrophy false Cystic Fibrosis false Cherry Log's Chorea false Intellectual Disability/Autism false If Yes, Was Person Tested For Fragile X? false Other Inherited Genetic Or Chromosomal Disorder false Maternal Metabolic Disorder (eg, Type 1 Diabetes , PKU) false Patient Or Baby's Father Had A Child With Defects Not Listed Above false Recurrent Loss, Or A Stillbirth false Medications (including Suppl ements, Vitamins, Herbs, OTC Drugs), Illicit/Recreational Drugs, Alcohol false If Yes, Agent(s) And Strength/Dosage false Any Other Genetic History false Live With Someone With TB Or Exposed To TB false Patient Or Partner Has History Of Genital Herpes false Rash Or Viral Illness Since Last Menstrual Perio d false History Of STD, Gonorrhea, Chlamydia, HPV, Syphi lis false Other Infection History false History of HIV false History of Hepatitis false Prior GBS-infected child false Hemoglobinopathy Or Carrier false Other Structural Defect false Recent Travel History Outside of Country false Delivery Information Delivery Date Delivery Type Labor Anesthesia Weeks Gestation Incision Type Labor Labor Length Hrs Delivered By Post Complications Tubal Sterilization Discharge Date Comments Octisadora [facility] idural 39.6 Diana Quintero Discharge Information Feeding Method Contraceptive Method Maternal HG B and HCT Levels Ob Episode Information Episode Created Date Number of Fetuses Patient Bloodtype Patient rh Status Prepregnancy Weight lbs Domestic Partner Domestic Partner Phone Father Name Roller Operator Status 05/06/19 24 1 CLOSED Fetus Data First Name Last Name Admitted to NICU Weight (g) Sex Living Outcome Pediatric Complications Fetus ID Race Codes Race Delivery Type , Induced [id number] Darrell Calculation Initial Darrell Date Initial Exam Date Initial Exam Provider Initial Ultrasound Date Last Menstrual Period Date Ultra Sound Weeks Gestation 0 Eighteen To Twenty Week Darrell Update Ultra Sound Date Fundal Height At Umbil Quickening Date Ultra Sound Latest Weeks Gestation Final Darrell Confirmed By Final Darrell Confirmed Date Final Darrell Date Ultra Sound Latest Days Gestation 0 0 Menstrual History Last Menstrual Date Menses Monthly On Bcp Conception Prior Menses Frequency Hcg Plus Date Menarche Onset Age Delivery Information Delivery Date Delivery Type Labor Anesthesia Weeks Gestation Incision Type Labor Labor Length Hrs Delivered By Post Complications Tubal Sterilization Discharge Date Comments 9 Discharge Information Feeding Method Contraceptive Method Maternal HG B and HCT Levels
--- OUTSIDE RECORDS SUMMARY | 2024-05-09 12:04 | XMS_ITS | Clinical Summary ---
Author Organization [facility] Address [address] [place] [address] Care Team Providers Care Pool Hall Inspector Name Role Phone Abundio Rivera DO Primary Care Provider [phone] Allergies No known active allergies Medications No known medications Active Problems No known active problems Immunizations Immunization Administration Dates Next Due Tdap 10/25/2021(Deferred: Patient Ref used) Social History Tobacco Use Types Packs/Day Years Used Date Smoking Tobacco: Never Smokeless Tobacco: Never Personal Safety Answer Date Recorded Getting School Help Needed Not on file 05/05 Comments No Sex and Gender Information Value Date Recorded Sex Assigned at Not on file Legal Sex Female 8:47 AM ASBESTOS WORKER HELPER Gender Identity Not on file Sexual Orientation Not on file Obstetrics History Last Filed Vital Signs Vital Sign Reading Time Taken Comments Blood Pressure 114/52 04/18/2022 7:00 AM ASBESTOS WORKER HELPER Pulse 103 04/18/2022 7:00 AM ASBESTOS WORKER HELPER Temperature 36.1 C (96.9 F) 04/18/2022 3:06 AM ASBESTOS WORKER HELPER Respiratory Rate 16 04/18/2022 4:30 AM ASBESTOS WORKER HELPER Oxygen Saturation 100% 04/18/2022 7:00 AM ASBESTOS WORKER HELPER Inhaled Oxygen Concentration - - Weight 56.7 kg (125 lb) 04/18/2022 3:06 AM ASBESTOS WORKER HELPER Height 156.2 cm (5' 1.5 ) 11/08/2021 10:52 AM CD T Body Mass Index 23.24 11/08/2021 10:52 AM CDT Plan of Treatment Health Maintenance Due Date Last Done Comments Cervical Cancer Screening 1996 Depression Screening 1996 Hepatitis C Screening 1996 DTaP/Tdap/Td Vaccine (1 - Tdap) 06/03/2007 Varicella Vaccines (1 of 2 - 13+ 2-dose series) 2009 Hepatitis B Screening 2014 Regular Well Visit/Exam 18-64 2014 Influenza Vaccine (#1) 2023 HPV Vaccines Aged Out No longer eligi ble based on patient's age to complete this topic Pneumococcal vaccine <65 Aged Out No longer eligible based on patient's age to complete this topic Insurance Care Teams Pool Hall Inspector Relationship Specialty Start Date End Date Abundio Rivera DO [address] [place] [address] PCP - General 01/16/17
--- OUTSIDE RECORDS SUMMARY | 2024-05-09 12:04 | XMS_ITS | Referral Summary ---
Author Organization [facility] Address [address] [place] [address] Care Team Providers Care Avionics Supervisor Name Role Phone Abundio Rivera DO Primary Care Provider [phone] Allergies No known active allergies Medications No [...] on file Legal Sex Female 8:47 AM ARMATURE WINDER AUTOMOTIVE Gender Identity Not on file Sexual Orientation Not on file Last Filed Vital Signs Vital Sign Reading Time Taken Comments Blood Pressure 114/52 04/18/2022 7:00 AM ARMATURE WINDER AUTOMOTIVE Pulse 103 04/18/2022 7:00 AM ARMATURE WINDER AUTOMOTIVE Temperature 36.1 C (96.9 F) 04/18/2022 3:06 AM ARMATURE WINDER AUTOMOTIVE Respiratory Rate 16 04/18/2022 4:30 AM ARMATURE WINDER AUTOMOTIVE Oxygen Saturation 100% 04/18/2022 7:00 AM ARMATURE WINDER AUTOMOTIVE Inhaled Oxygen Concentration - - Weight 56.7 kg (125 lb) 04/18/2022 3:06 AM ARMATURE WINDER AUTOMOTIVE Height 156.2 cm (5' 1.5 ) 11/08/2021 10:52 AM CD T Body Mass Index 23.24 11/08/2021 10:52 AM CDT Plan of Treatment Not on file Insurance [facility] Care Teams Avionics Supervisor Relationship Specialty Start Date End Date Abundio Rivera DO [address] [facility] [place] [address] PCP - General 01/16/17
--- NOTE | 2024-05-09 13:17 | ED.GENADULT ---
HPI - General Adult General Chief complaint: Extremity Injury, Lower Stated complaint: R knee pain Time Seen by Provider: 05/09/24 12:54 History of Present Illness HPI narrative: 28-year-old female present to the emergency department for evaluation for right knee pain. Patient states last night she did a high kick with her left leg and landed on her right knee, injury is at the right knee. Patient states he was having some pain last night and this morning but tried to give it time to improve but states she does have increased pain with weight-bearing at the knee. Patient denies striking head denies any loss consciousness. Patient denies any pain with range motion of the hip or ankle. Related Data Home Medications ?Medication ?Instructions ?Recorded ?Confirmed ?Last Taken ?Type ferrous sulfate 325 mg (65 mg 325 mg PO DAILY 11/11/23 12/04/23 12/04/23 History iron) tablet vits no.126-ferrous fum 1 tablet PO DAILY 11/11/23 12/04/23 12/04/23 History 28 mg iron-folic acid 800 mcg tablet (Classic ) Allergies Allergy/AdvReac Type Severity Reaction Status Date / Time No Known Allergies Allergy Verified 11/11/23 12:34 Review of Systems Review of Systems: All systems reviewed & are unremarkable except as noted in HPI and below PMFSH Family History Family History Grandparent Diabetes mellitus Other Lung cancer Social History Social History Substance use: never Spiritual care concerns: No Exam Narrative: APPEARANCE: Well appearing, no pain, no distress, well-nourished. HEAD: normocephalic, atraumatic. EYES: PERRLA/EOMI, conjunctivae clear. NOSE: Normal no drainage EARS:TMS clear with good light reflex. THROAT: Pharynx clear, no exudate. NECK: Supple. No adenopathy, no masses. RESPIRATORY: Airway patent, respirations nonlabored. Clear to auscultation bilaterally, no rales, rhonchi, wheezing. CARDIOVASCULAR: Regular rate and rhythm without murmurs rubs or gallops. ABDOMINAL: Soft, nontender, nondistended, normal bowel sounds MUSCULOSKELETAL: No tenderness to palpation at the right hip, right ankle right foot or proximal tib-fib, patient does have tenderness to right knee, NEURO: Alert. Cranial nerves II through XII intact. Good gait. Good coordination SKIN: Warm, dry. Normal Color Course Vital Signs Vital signs: Vital Signs Temperature 98.0 F 05/09/24 11:29 Pulse Rate 96 05/09/24 11:29 Respiratory Rate 18 05/09/24 11:29 Blood Pressure 125/79 05/09/24 11:29 Pulse Oximetry 100 05/09/24 11:29 Oxygen Delivery Room Air 05/09/24 11:29 Temperature 97.8 F 05/09/24 13:51 Pulse Rate 76 05/09/24 13:51 Respiratory Rate 16 05/09/24 13:51 Blood Pressure 118/70 05/09/24 13:51 Pulse Oximetry 100 05/09/24 13:51 Oxygen Delivery Room Air 05/09/24 11:29 Medical Decision Making MDM Narrative Medical decision making narrative: 28-year-old female presented emergency department for right knee pain. X-ray showed at least mild joint space narrowing in the medial compartment the right knee could be due to osteoarthritis and cartilage loss or potentially medial meniscal tear or extrusion. Patient was provided knee immobilizer and crutches for nonweightbearing. Patient will be provided outpatient follow-up with Orthopedics. Patient was updated results of her workup and recommended treatment for home. Differential Diagnosis Differential Diagnosis: Internal derangement of right knee, knee fracture, knee dislocation, knee sprain, knee effusion Vital Signs Vital Signs: Vital Signs Temperature 98.0 F 05/09/24 11:29 Pulse Rate 96 05/09/24 11:29 Respiratory Rate 18 05/09/24 11:29 Blood Pressure 125/79 05/09/24 11:29 Pulse Oximetry 100 05/09/24 11:29 Oxygen Delivery Room Air 05/09/24 11:29 Temperature 97.8 F 05/09/24 13:51 Pulse Rate 76 05/09/24 13:51 Respiratory Rate 16 05/09/24 13:51 Blood Pressure 118/70 05/09/24 13:51 Pulse Oximetry 100 05/09/24 13:51 Oxygen Delivery Room Air 05/09/24 11:29 Imaging Data Radiologist's impression: Impressions Knee X-Ray 05/09/24 13:31 IMPRESSION: 1. Moderate-sized right knee joint effusion. No acute osseous abnormality. 2. At least mild joint space narrowing in the medial compartment the right knee could be due to osteoarthritis and cartilage loss or potentially medial meniscal tear or extrusion. Discharge Plan Discharge Clinical Impression: Acute internal derangement of right knee Patient Disposition: Home, Self-Care Condition: Stable Instructions: Antibiotic Form, Crutch Instructions (ED), Knee Immobilizer (ED) Additional Instructions: Knee immobilizer for comfort, crutches for limited weight-bearing. Tylenol and ibuprofen for pain control. Have close follow-up with primary care physician and have close follow-up with Orthopedics. Patient Language: Kinyarwanda Prescriptions: No Action ferrous sulfate 325 mg (65 mg iron) Tablet 325 mg PO DAILY Classic 28 mg iron- 800 mcg Tablet 1 tablet PO DAILY Follow-up/Referrals: Teddy Dye MD [Physician] - UNKNOWN,DOCTOR [Primary Care Provider] -
[2024-05-09 13:51] VITALS: BP 118/70; PULSE 76; RESP 16; TEMP 36.6; O2SAT 100
--- OUTSIDE RECORDS SUMMARY | 2024-05-09 15:41 | XMS_ITS | CONTINUITY OF CARE DOCUMENT ---
Author Name sandra flores Address Unknown Organization [facility] Address [address] [place] [address] Phone [phone] Care Team Providers Care Larry Car Operator Name Role Phone Toshia Peterson MD Unavailable Toshia Peterson MD Unavailable [phone] INSURANCE PROVIDERS Payer name Policy type / Coverage type [place] [employer] [id number] Medicaid [id number]
--- OUTSIDE RECORDS SUMMARY | 2024-05-09 15:41 | XMS_ITS | Clinical Summary ---
Author Organization [facility] Care Team Providers Care Bell Cleaner Name Role Phone Provider, None Primary Care [...] on file Legal Sex Female 8:48 AM DAYTIME CAREGIVER Gender Identity Not on file Sexual Orientation [...] this topic Insurance MEDICAID [place] Care Teams Bell Cleaner Relationship Specialty Start Date End Date Provider, None [place] PCP - General 10/25/21
--- OUTSIDE RECORDS SUMMARY | 2024-05-09 15:41 | XMS_ITS | Clinical Summary ---
Author Organization [facility] Address [address] [place] [address] Care Team Providers Care Buhr Dresser Name Role Phone Abundio Rivera DO Primary Care Provider [phone] Allergies No known active allergies Medications No [...] on file Legal Sex Female 8:47 AM COMPUTER LANGUAGE CODER Gender Identity Not on file Sexual Orientation Not on file Obstetrics History Last Filed Vital Signs Vital Sign Reading Time Taken Comments Blood Pressure 114/52 04/18/2022 7:00 AM COMPUTER LANGUAGE CODER Pulse 103 04/18/2022 7:00 AM COMPUTER LANGUAGE CODER Temperature 36.1 C (96.9 F) 04/18/2022 3:06 AM COMPUTER LANGUAGE CODER Respiratory Rate 16 04/18/2022 4:30 AM COMPUTER LANGUAGE CODER Oxygen Saturation 100% 04/18/2022 7:00 AM COMPUTER LANGUAGE CODER Inhaled Oxygen Concentration - - Weight 56.7 kg (125 lb) 04/18/2022 3:06 AM COMPUTER LANGUAGE CODER Height 156.2 cm (5' 1.5 ) 11/08/2021 [...] to complete this topic Insurance Care Teams Buhr Dresser Relationship Specialty Start Date End Date Abundio Rivera DO [address] [place] [address] PCP - General 01/16/17
--- OUTSIDE RECORDS SUMMARY | 2024-05-09 15:41 | XMS_ITS | Referral Summary ---
Author Organization [facility] Address [address] [place] [address] Care Team Providers Care Technical Services Assistant Name Role Phone Abundio Rivera DO Primary Care Provider [phone] Allergies No known active allergies Medications No [...] on file Legal Sex Female 8:47 AM AUTO SERVICER Gender Identity Not on file Sexual Orientation Not on file Last Filed Vital Signs Vital Sign Reading Time Taken Comments Blood Pressure 114/52 04/18/2022 7:00 AM AUTO SERVICER Pulse 103 04/18/2022 7:00 AM AUTO SERVICER Temperature 36.1 C (96.9 F) 04/18/2022 3:06 AM AUTO SERVICER Respiratory Rate 16 04/18/2022 4:30 AM AUTO SERVICER Oxygen Saturation 100% 04/18/2022 7:00 AM AUTO SERVICER Inhaled Oxygen Concentration - - Weight 56.7 kg (125 lb) 04/18/2022 3:06 AM AUTO SERVICER Height 156.2 cm (5' 1.5 ) 11/08/2021 10:52 AM CD T Body Mass Index 23.24 11/08/2021 10:52 AM CDT Plan of Treatment Not on file Insurance [facility] Care Teams Technical Services Assistant Relationship Specialty Start Date End Date Abundio Rivera DO [address] [facility] [place] [address] PCP - General 01/16/17
== END 2024-05-09 14:06 | disposition home or self-care (01) ==
PROVIDERS: Emergency Provider Emergency Medicine
DX: M23.91 Unspecified internal derangement of right knee (principal)
CPT/HCPCS: 73562; 99283

== ENCOUNTER 2024-05-23 07:58 | Outpatient (CLI) | payer OTHER, SELFPAY ==
--- NOTE | ~2024-05-23 | MR_ITS ---
EXAMINATION: MR knee RT wo con DATE: 05/23/2024 08:24 INDICATION: Unspecified injury of right lower leg. Right knee pain. TECHNIQUE: Magnetic resonance imaging (MRI) of the right knee was performed without intravenous contr ast. Sequences included axial PD-weighted FS FSE, coronal PD-weighted FSE and PD-weighted FS FSE, sag ittal PD-weighted FSE, and sagittal T2-weighted FS FSE. COMPARISON: Right knee radiographs 05/09/2024 FINDINGS: Medial compartment: Medial meniscus is normal. There is cartilage surface irregularity of tibial condyle and femoral cond yle. There is edema-like marrow signal intensity involving posterior medial aspect of femoral condyle and anteromedial aspect of tibial condyle. Lateral compartment: Lateral meniscus is normal. There is cartilage surface irregularity of tibial condyle. There is full- thickness cartilage fissuring of femoral condyle involving the central articular surface with undermi mazin of a 2 mm cartilage flap. There is edema-like marrow signal intensity of lateral aspect of later al femoral condyle. Patellofemoral compartment: There is full-thickness cartilage loss of patellar median ridge and medial facet with cortical loss. There is extensive edema-like marrow signal intensity in the patella. Trochlear dysplasia is noted. T here is cartilage surface irregularity of trochlea. Ligaments and tendons: The anterior and posterior cruciate ligaments are normal. There is edema around medial collateral lig ament, consistent with mild sprain. There are changes of prior sprain of fibular collateral ligament characterized by increased signal intensity proximally. There is mild patellar tendinopathy. Fluid: There is a large knee joint effusion. There is a 10 mm loose body posterior to lateral femoral condyl e. IMPRESSION: 1. Bone marrow edema pattern of patellar dislocation-relocation injury. 2. Severe chondrosis in lateral and patellofemoral compartments and mild chondrosis in medial compart ment. 3. Large knee joint effusion. A 10 mm loose body posterior to lateral femoral condyle may correlate w ith the patellar osteochondral defect. 4. Mild medial collateral ligament sprain (grade 1). Reviewed, dictated and finalized at location B. IMPRESSION: 1. Bone marrow edema pattern of patellar dislocation-relocation injury. 2. Severe chondrosis in lateral and patellofemoral compartments and mild chondr osis in medial compartment. 3. Large knee joint effusion. A 10 mm loose body posterior to lateral femoral c ondyle may correlate with the patellar osteochondral defect. 4. Mild medial collateral ligament sprain (grade 1).
== END 2024-05-23 07:59 | disposition home or self-care (01) ==
LOC: MICIMG 07:58
PROVIDERS: PCP Orthopaedic Surgery; Visit Provider Orthopaedic Surgery
DX: S83.411A Sprain of medial collateral ligament of right knee, initial encounter (principal); M94.261 Chondromalacia, right knee; M25.461 Effusion, right knee; X58.XXXA Exposure to other specified factors, initial encounter
CPT/HCPCS: 73721

== ENCOUNTER 2024-11-01 18:38 | Emergency (ER) | payer OTHER, SELFPAY ==
--- NOTE | 2024-11-01 18:41 | ED_ITS ---
HPI - URI/Sore Throat General Chief Complaint: Upper Respiratory Infection Stated Complaint: HEADACHE/TIRED/CHILLS/EARS/SINUS Time Seen by Provider: 11/01/24 18:48 Source: patient, RN notes reviewed and old records reviewed Mode of arrival: ambulatory Limitations: no limitations History of Present Illness HPI Narrative: A 29-year-old female presents to the [facility] with a 2 day history of headache, fatigue, chills, ear pressure, sinus pressure. Denies fevers. Has taken ibuprofen which she states helps the symptoms of headache. Symptoms started Thursday 2 days ago. Onset (ago): day(s) Treatments prior to arrival: ibuprofen Related Data Allergies Allergy/AdvReac Type Severity Reaction Status Date / Time No Known Allergies Allergy Verified 11/01/24 18:46 Review of Systems Review of Systems: All systems reviewed & are unremarkable except as noted in HPI and below Constitutional: Constitutional: Reports as per HPI, Reports body ache(s), Reports fatigue and Reports headache(s) ENT: Reports as per HPI, Reports otalgia and Reports sinus pressure Cardiovascular: Cardiovascular: Reports no additional cardiovascular complaints, Denies chest pain and Denies dyspnea Respiratory: Respiratory: Reports no additional respiratory complaints, Denies chest congestion, Denies cough and Denies dyspnea Musculoskeletal: Musculoskeletal: Reports no additional musculoskeletal complaints Integumentary/Breasts: Skin/Breast: Reports system reviewed and no additional complaints, except as docu PMFSH Family History Family History Grandparent Diabetes mellitus Heart disease Alcoholism Asthma Arthritis Hypertension Other Lung cancer Social History Social History Smoking status: Never smoker Substance use type: does not use Living arrangements: with family Gender identity (if verbalized by the patient): Female Spiritual care concerns: No Comments At the time of my signature, I reviewed and agree with the nursing past medical, surgical, social, and family history. There is no relevant family history pertinent to the patient complaint. Exam Const: General: cooperative, healthy appearing, comfortable, no acute distress, well developed, alert and well nourished Nutritional Appearance: well nourished Orientation/consciousness: patient oriented x3 Limitations: no limitations HENMT: Head: normal to inspection Ears: hearing grossly normal bilaterally, external ears normal, TM's normal bilaterally, EAC's normal, mastoids normal and no periauricular adenopathy Face/Nose/Sinus: Normal external nose present, Normal nares present, Normal nasal mucous membranes and turbinates present, normal facial exam, sinuses nontender and face symmetric Mouth: Yes Normal oral and palatal mucosa present, Yes lip normal, Yes tongue normal and Yes moist mucous membranes Throat: posterior oropharynx normal, tonsils normal, uvula midline and no uvular edema Eyes: General: appearance normal, both eyes and all related structures Alignment and Position: alignment normal Neck: Neck: normal visual inspection, full ROM, no lymphadenopathy and no meningeal signs Chest: Chest palpation & inspection: normal inspection of the chest Resp: Effort & Inspection: normal respiratory effort and able to speak in complete sentences Auscultation: clear to auscultation bilaterally, no crackles, no rales, no rhonchi and no wheezes Cardio: Rate: regular rate Skin: General skin exam: normal color and no rashes or lesions noted Neuro: General: patient oriented x3, gait normal, moves all extremities and no meningeal signs Cognition (Neuro): normal cognition Speech: normal speech Gait exam (Neuro): Normal gait present Extrem: General: normal to inspection, full ROM, capillary refill normal and normal gait Psych: Appearance: grossly normal and well kempt Mental Status: mental status grossly normal Speech and movement: Normal speech and movement present and Clear speech present Affect: normal affect Attitude: cooperative Course Course Level of Care: Express Care Visit Vital Signs Vital signs: Vital Signs Temperature 98.3 F 11/01/24 18:51 Pulse Rate 116 H 11/01/24 18:51 Respiratory Rate 16 11/01/24 18:51 Blood Pressure 121/86 11/01/24 18:51 Pulse Oximetry 100 11/01/24 18:51 Temperature 98.3 F 11/01/24 18:51 Pulse Rate 116 H 11/01/24 18:51 Respiratory Rate 16 11/01/24 18:51 Blood Pressure 121/86 11/01/24 18:51 Pulse Oximetry 100 11/01/24 18:51 Reviewed MDM - URI/Sore Throat MDM Narrative Medical decision making narrative: Patient sitting in exam room. Patient is nontoxic, vitals stable. Patient presents with 2 day history of URI symptoms. Patient's flu and COVID tests are negative Patient is appropriate for outpatient treatment with close follow-up Discharge instructions reviewed with patient, as well as provided in writing per nursing staff. The instructions also include specific and strict return/GO TO THE ER as well as f/u information. All questions have been answered, and the patient deny any further questions with discharge and discharge plan. Some parts of this dictation were generated by voice recognition software and may contain typographical and/or grammatical inaccuracies. Differential Diagnosis Differential diagnosis: Likely upper respiratory infection, otitis media, sinusitis, viral infection and influenza Lab Data Labs: Lab Results 11/01/24 Range/Units 18:45 POC Influenza A Ag Negative (Negative) POC Influenza B Ag Negative (Negative) POC SARS CoV-2 Ag Negative (Negative) Reviewed Critical Care Time Critical Care Time Critical Care Time: No Discharge Plan Discharge Clinical Impression: Upper respiratory infection Qualifiers: URI type: unspecified viral URI Qualified Code(s): J06.9 - Acute upper respiratory infection, unspecified Sinusitis Qualifiers: Sinusitis location: unspecified location Chronicity: acute Recurrence: not specified as recurrent Qualified Code(s): J01.90 - Acute sinusitis, unspecified Patient Disposition: Home Condition: Stable Instructions: Antibiotic Form, Sinusitis (ED), Viral Syndrome (ED) Additional Instructions: Your rapid COVID test were negative Your rapid flu test was negative Your symptoms are likely due to a viral illness, which is not treated with antibiotics. Typically viral infections last 7-10 days, can linger for couple of weeks. It is very important to treat your symptoms. Drink plenty of water, Gatorade, Pedialyte, ice pops or Jell-O. -Alternate Tylenol and Motrin per package directions for fever or pain. You can alternate every 4 hours -Antihistamine medication such as Zyrtec/Claritin/Eneida during the day can help improve symptoms. -doing daily nasal irrigations can help relieve pressure your sinuses. Things like a Neti pot -Use Flonase twice a day for 5 days then daily to help reduce the inflammation and dry up your sinuses. -You can also use Mucinex. Be sure to drink plenty of water with this medication at least 8 ounces with every dose and it is important to drink 8 to 10 glasses of water per day. Water is a natural decongestant -Eat and drink things that are easy to swallow, like tea or soup, or popsicles. -Oral rinses such as: Salt water gargles and/or may use topical anesthetic (eg. Chloraseptic spray) or lozenges to relieve dryness or throat pain). -Frequent hand washing or hand clinical applications manager is one of the best ways to prevent spread of infection. -Using a vaporizer or humidifier at night will also help thin secretions and help with coughing up phlegm. -Follow up with primary care provider in 7-10 days if condition is not improving - For new or worsening symptoms go directly to the nearest ER Patient Language: Mongolian Follow-up/Referrals: UNKNOWN,DOCTOR [Non-Staff] Stand Alone Forms: Work/School Release IP Time of Disposition: 19:01
[2024-11-01 18:51] VITALS: BP 121/86; PULSE 116; RESP 16; TEMP 36.8; O2SAT 100
[2024-11-01 19:09] LABS: EDCOVIDSCREEN Negative (Negative); EDINFLUASCREEN Negative (Negative); EDINFLUBSCREEN Negative (Negative)
== END 2024-11-01 19:05 | disposition home or self-care (01) ==
PROVIDERS: Emergency Provider Nurse Practitioner
DX: J06.9 Acute upper respiratory infection, unspecified (principal); J01.90 Acute sinusitis, unspecified; Z20.822 Contact with and (suspected) exposure to COVID-19
CPT/HCPCS: 87426; 87804; 99212; G0463

== ENCOUNTER 2025-01-11 20:31 | Emergency (ER) | payer OTHER, SELFPAY ==
--- OUTSIDE RECORDS SUMMARY | 2025-01-11 20:33 | XMS_ITS | Clinical Summary ---
Author Organization [facility] Address [address] [place] [id number] Care Team Providers Care Sanitation Laborer Name Role Phone Miguel Abundio Johan VINSON Primary Care Provider [phone] Allergies No known active allergies Medications No known medications Active Problems No known active problems Immunizations Immunization Administration Dates Next Due DTP 1996 DTP / HiB 1996,1996 DTaP 07/09/2001,11/23/1997 Hep A, Pediatric 12/11/2006,07/15/2005 Hep B, Adolescent or Pediatric 1996,1996,1996 MMR 07/09/2001,06/06/1997 Meningococcal MCV4P (Menactra) 11/21/2010 Tdap 09/30/2023,(Deferred: Patient Refused),12/11/2006 Social History Tobacco Use Types Packs/Day Years Used Date Smoking Tobacco: Never Smokeless Tobacco: Never Comments No Sex and Gender Information Value Date Recorded Sex Assigned at Not on file Legal Sex Female 8:47 AM INDUSTRIAL CLEANING TECHNICIAN Gender Identity Not on file Sexual Orientation Not on file Obstetrics History Last Filed Vital Signs Vital Sign Reading Time Taken Comments Blood Pressure 114/52 04/18/2022 7:00 AM INDUSTRIAL CLEANING TECHNICIAN Pulse 103 04/18/2022 7:00 AM INDUSTRIAL CLEANING TECHNICIAN Temperature 36.1 C (96.9 F) 04/18/2022 3:06 AM INDUSTRIAL CLEANING TECHNICIAN Respiratory Rate 16 04/18/2022 4:30 AM INDUSTRIAL CLEANING TECHNICIAN Oxygen Saturation 100% 04/18/2022 7:00 AM INDUSTRIAL CLEANING TECHNICIAN Inhaled Oxygen Concentration - - Weight 56.7 kg (125 lb) 04/18/2022 3:06 AM INDUSTRIAL CLEANING TECHNICIAN Height 156.2 cm (5' 1.5) 11/08/2021 10:52 AM CD T Body Mass Index 23.24 11/08/2021 10:52 AM CDT Plan of Treatment Health Maintenance Due Date Last Done Comments Cervical Cancer Screening 1996 Depression Screening 1996 Hepatitis C Screening 1996 Varicella Vaccines (1 of 2 - 13+ 2-dose series) 2009 Regular Well Visit/Exam 18-64 2014 Covid-19 Vaccine ( season) 2024 04/03/2022, 03/12/2022 Influenza Vaccine (#1) 2024 01/04/2024, 2022 DTaP/Tdap/Td Vaccine (8 - Td or Tdap) 09/29/2033 09/30/2023, 12/11/2006, 07/09/2001, Additional history exists Hepatitis B Screening Completed 1996 , 1996, 1996 HPV Vaccines Completed 09/08/2007, 06/2006, 12/11/2006 Pneumococcal vaccine <65 Aged Out No longer eligible based on patient's age to complete this topic Insurance [facility] Care Teams Sanitation Laborer Relationship Specialty Start Date End Date Abundio Rivera DO [address] [facility] [id number] PCP - General 01/16/17
--- OUTSIDE RECORDS SUMMARY | 2025-01-11 20:33 | XMS_ITS | Clinical Summary ---
Author Organization [facility] Care Team Providers Care Architectural Modeler Name Role Phone Provider, None Primary Care [...] on file Legal Sex Female 8:48 AM RN RESIDENTIAL Gender Identity Not on file Sexual Orientation [...] 9:54 PM CDT Height 157.5 cm (5' 2) 12/17/2022 9:54 PM CDT Body Mass Index 23.05 12/17/2022 9:54 PM CDT Plan of Treatment Health Maintenance Due Date Last Done Comments Hepatitis C Virus (HCV) Screening 1996 Pap Smear 2017 Influenza Immunization (#1) 2024 SARS-COV-2 Immunization ( season) 2024 04/03/2022, 03/12/2022 Respiratory Syncytial Virus (RSV) Immunization (Adult) (1 - 1-dose 75+ series) 06/03/2071 Hepatitis B Immunization Completed 997, 1996, 1996 DTaP/Tdap/Td Immunization Discontinued 2006, 07/09/2001, 11/23/1997, Additional history exists TdaP Immunization Completed 12/11/2006 Human Papillomavirus (HPV) Immunization Completed 09/08/2007, 02/16/2007, 12/11/2006 Meningococcal Immunization (ACWY) Aged Out 11/21/2010 No longer eligible based on patient's age to complete this topic Pneumococcal Immunization Combined Aged Out No longer eligible based on patient's age to complete this topic Rotavirus Immunization Aged Out No lo nger eligible based on patient's age to complete this topic Insurance MEDICAID [place] Care Teams Architectural Modeler Relationship Specialty Start Date End Date Provider, None [place] PCP - General 10/25/21
[2025-01-11 20:37] VITALS: BP 101/79; PULSE 130; RESP 20; TEMP 36.5; O2SAT 100
--- NOTE | 2025-01-11 21:15 | PC.NURSE ---
After triage, pt was told that she would be the next patient to go back, pt placed in WR, full service supervisor notified of pt acuity. No ER staff observed pt leaving department, pt was called x 2 to be roomed, no answer.
--- OUTSIDE RECORDS SUMMARY | 2025-01-11 22:57 | XMS_ITS | Data Portability ---
Author Organization [facility] Raymond Address [address] [place] [address] Assessment No assessment recorded. Plan of Treatment [...] Resul ting Lab: [facility] [address] [facility] [address] Tel: CULTU RE ----- ----- ----- --- No growt h in 1 day (dete ction level of 10,00 0 colon ies / ml.) Not Available [facility] (Lab) [address] [facility], [place], [address], 10/30/2023 07:43:20 11/11/19 24 11/11/2023 CULTU RE: [...] t Abnor mal: No Resul ting Lab: [facility] [address] [facility] [address] Tel: CULTU RE ----- ----- ----- --- No Group B strep isola ines at 2 days (essence ctive broth enhan cemen t) Not Available [facility] (Lab) [address] [facility], [place], [address], 11/14/2023 15:00:57 Result Notes None recorded. Problems Name Problem SNOMED Code Status Onset Date Resolution Date Notes Provider Name and Address Organization Details Recorded Time 89040112 Active 024 [facility]29 Problem Notes None recorded. Procedures Surgical History Date Name Laterality Status Provider Name and Address Organization Details Recorded Time 05/06/2023 Date of Last Pap Smear completed Gloria Blum [facility] 12/02/2023 09:18:55 Imaging Results None recorded. Procedure Notes None recorded. Medical Equipment None Reported. Allergies No known drug allergies Medications Name Sig Start Date Stop Date Status Note LastModified by Organization Details LastModified Time famotidine 20 mg tablet Take 1 tablet twice a day by oral route. 10/28 completed Not Available Not Available Not Available iron active Not Available Not Availa ble Not Available active Not Available Not Avai lable Not Available Vitals Date Recorded Body height Body mass index (BMI) Body weight Systolic And Diastolic Provider Name and Address Organization Details Last Updated DateTime 11/11/2023 157.48 cm 29.3 kg/m2 95488.78 g 125/80 mm[Hg] Marisela De Luna [facility] 11/11/2023 10:37:53 Date Recorded Body height Body mass index (BMI) Body weight Systolic And Diastolic Provider Name and Address Organization Details Last Updated DateTime 11/20/2023 157.48 cm 29.7 kg/m2 56724.12 g 121/82 mm[Hg] [facility] 11/20/2023 12:12:23 Date Recorded Body height Body mass index (BMI) Body weight Systolic And Diastolic Provider Name and Address Organization Details Last Updated DateTime 11/25/2023 157.48 cm 30 kg/m2 10973.43 g 118/74 mm[Hg] [facility] 11/25/2023 10:14:06 Date Recorded Body height Body mass index (BMI) Body weight Systolic And Diastolic Provider Name and Address Organization Details Last Updated DateTime 12/02/2023 157.48 cm 30.2 kg/m2 20941.741 05 g 114/76 mm[Hg] [facility] 12/02/2023 10:29:41 Date Recorded Body height Body mass index (BMI) Body weight Systolic And Diastolic Provider Name and Address Organization Details Last Updated DateTime 02/01/2024 157.48 cm 26.3 kg/m2 19450.3 g 117/73 mm[Hg] [facility] 02/01/2024 12:58:12 Social History Question Answer Notes LastModified by Organizat ion Details LastModified Time Tobacco Smoking Status Never Smoker [email or web address] 05/06/2023 12:37:40 Do You Have An Advance Directive? No [email or web address] Information n ot available 02/01/2024 Are You Blind Or Do You Have [...] Or The Highest Degree You Have Received? [id number] Information not available 05/06/2023 Are There Any Guns Present In Your Home? No Information not available 05/06/2023 Do You Use Your Seat Belt Or Car Seat Routinely? Yes [email or web address] Information not available 02/01/2024 Do You Have Smoke And Carbon Monoxide Detectors In Your Home? Yes Information not available 05/06/2023 How Much Tobacco Do You Smoke? No Information not available 05/06/2023 Have You Used IV Drugs? No Information not available 05/06/2023 Do You Have Difficulty Walking Or Climbing Stairs? No Information not available 05/06/2023 Sex: Unknown Functional Status Question Answer Note LastModified by Organizat ion Details LastModified Time Do you use any illicit or recreational drugs? No Information not available 05/06/2023 What is your level of alcohol consumption? Occasional Information not available 05/06/2023 Are you able to walk independently without assistance or assistive devices? YESWOREST Information not available 05/06/2023 Are you able to care for yourself independently? Yes Information not available 05/06/2023 Do you have difficulty dressing, bathing, grooming, or toileting? No Information not available 05/06/2023 What is your exercise level? Moderate Information not available 05/06/2023 Mental Status Question Answer Note LastModified by Organization D etails LastModified Time Do you feel stressed (tense, restless, nervous, or anxious, or unable to sleep at night)? [id number] Information not available 05/29/2023 Family History Relationship Description Onset Age of this Age Resolved Age Notes LastModified by Organization Details LastModified Time Maternal Grandmother Malignant neoplasm of brain [email or web address] Not available 2023 12:51:17 Maternal Grandfather Malignant neoplasm of lung [email or web address] Not available 2023 14:16:26 Maternal Aunt Malignant neoplasm of breast [email or web address] Not available 2023 14:16:26 [...] Diagnosis SNOMED-CT Code Diagnosis ICD10 Code Diagnosis IMO Codes Diagnosis Note [id number] Timmy Luis MD Raymond [address],[facility] [place] [address] 05/06/2023 11:29:45 05/06/2023 12:13:23 [id number] WILLIAMS ABRAHAM MD Raymond [address] [address] 05/06/2023 11:30:14 05/10/2023 00:05:03 test positive 031254557 Z32.01 1. Exam today within normal limits.2. Ultrasound today confirms GA and viability. EDC . GC/Clamydi a testing done: will f/u as indicated. 4. ACOG guidelines and plan of care for reviewed with patient. All questions answered.5 . Return to office at 12 weeks for new OB visit6. Will need new OB labs at next visit.7. Genetic screening: desires. [id number] Timmy Luis MD Raymond [address] [address] 05/29/2023 12:24:12 05/29/2023 14:37:58 screening 585534357 Z36.82 Z3A.12 [id number] MD Pamela ROMERO [address],[place] [address] 05/29/2023 12:24:34 06/04/2023 13:34:21 Routine care 995356271 Z34.90 [id number] MD Pamela ROMERO [address],[place] [address] 06/24/2023 09:50:03 06/24/2023 10:25:31 Routine care 851178238 Z34.90 [id number] Timmy Luis MD Raymond [address],[place] [address] 07/22/2023 10:57:32 07/22/2023 12:08:47 screening for malformation 020531815 Z36.3 Z3A.20 [id number] MD Pamela ROMERO [address],[place] [address] 07/22/2023 10:58:21 07/23/2023 06:28:39 Lightheadedness 953785194 R42 Gestation period, 20 weeks 10247320 Z3A.20 [id number] MD Pamela ROMERO [address],[place] [address] 08/19/2023 10:51:45 08/19/2023 12:23:39 Gastroesophageal reflux disease 620561650 K21.9 Lightheadedness 47574636 8 R42 Gestation period, 24 weeks 388278254 Z3A.24 [id number] MD Pamela ROMERO [address],[place] [address] 09/16/2023 14:17:09 09/16/2023 15:08:44 Routine care 274590158 Z34.90 [id number] MD Pamela ROMERO [address],[place] [address] 09/29/2023 15:46:58 09/29/2023 16:33:21 Anemia of 22286237 O99.019 - Hgb 10.4 > 10.9- continue PO Fe Gestation period, 30 weeks 63882879 Z3A.30 [id number] MD Pamela ROMERO [address],[place] [address] 10/14/2023 10:04:52 10/14/2023 10:36:34 Anemia of 93314346 O99.019 - Hgb 10.4 > 10.9- continue PO Fe Gestation period, 32 weeks 8809889 Z3A.32 - continue PNV [id number] MD Pamela ROMERO [address],[place] [address] 10/28/2023 10:09:29 10/28/2023 10:55:31 Urinary symptoms 229220310 R39.9 Gestation period, 34 weeks 04579934 Z3A.34 [id number] MD Pamela ROMERO [address],[place] [address] 11/11/2023 10:21:45 11/11/2023 11:10:35 Routine care 683175762 Z34.90 - continue PNV [id number] MD Pamela ROMERO [address],[place] [address] 11/20/2023 11:59:14 11/20/2023 12:36:11 Routine care 390522399 Z34.90 - continue PNV [id number] MD Pamela ROMERO [address],[place] [address] 11/25/2023 10:05:38 11/25/2023 11:05:53 Routine care 870387242 Z34.90 - continue PNV [id number] MD Pamela ROMERO [address],[place] [address] 12/02/2023 10:19:36 12/02/2023 10:50:07 Routine care 222581716 Z34.90 - continue PNV- induction scheduled [id number] MD Pamela ROMERO [address] [address] 02/01/2024 12:51:10 02/01/2024 14:15:35 care 443342700 Z39.2 S/p 8 weeks ago here today [...] None Recorded Advance Directives Directive N: Payers Insurance Date Sequence Insurance Name Policy Number Policy Navarro Covered Member ID Navarro Member ID Guarantor Name 02/19/2024 1 [facility] (MEDICAID HMO) [id number] Gary Yanez [id number] Gary Yanez Notes Date Note Type Note Provider Name and Address Organization Details Recorded Time 11/11/2023 text/html Generic HPI TemplateReported by Patient WILLIAMS ABRAHAM MD [address], [place], [address], [facility] 11/11/2023 11:06:46 11/20/2023 text/html Generic HPI TemplateReported by Patient WILLIAMS ABRAHAM MD [address], [place], [address], [facility] 11/20/2023 12:32:55 11/25/2023 text/html Generic HPI TemplateReported by Patient WILLIAMS ABRAHAM MD [address], [place], [address], [facility] 11/25/2023 11:03:32 12/02/2023 text/html Generic HPI TemplateReported by Patient WILLIAMS ABRAHAM MD [address], [place], [address], [facility] 12/02/2023 10:48:54 02/01/2024 text/html S/P on 12/04 at 39 [...] time. WILLIAMS ABRAHAM MD [address], [place], [address], [facility] 02/01/2024 14:13:04 OBGyn Episode Ob Episode Information Episode Created Date Number of Fetuses Patient Bloodtype Patient rh Status Prepregnancy Weight lbs Domestic Partner Domestic Partner Phone Father Name Higher Level Teaching Assistant Status 05/06/19 24 1 CLOSED Fetus Data First Name Last Name Admitted to NICU Weight (g) Sex Living Outcome Pediatric Complications Fetus ID Race Codes Race Delivery Type , Spontane ous [id number] Darrell Calculation Initial Darrell Date Initial Exam [...] Domestic Partner Domestic Partner Phone Father Name Higher Level Teaching Assistant Status 06/03/19 24 1 130 CLOSED Fetus Data First Name Last Name Admitted to NICU Weight (g) Sex Living Outcome Pediatric Complications Fetus ID Race Codes Race Delivery Type 3739.86 604 M true Full Term [id number] Vaginal Delivery Darrell Calculation Initial Darrell Date [...] Date Ultra Sound Latest Days Gestation 0 [id number] 06/04/2023 12/06/19 24 0 Pre-roxi Flowsheet Flowsheet Date 05/29/2023 Leiva Score Blood Edema Fundus Height Fundus Units Glucose Ketones Leukocytes Nitrite Labor Signs Protein Cervic Dilation Cervic Effacement Cervic Station Type Weight in lbs Pre/Post Dialysis Refused Weight 133.472626659616 BP Diastolic BP Location Tested BP Systolic [...] Weight in lbs Pre/Post Dialysis Refused Weight 136.505918791297 BP Diastolic BP Location Tested BP Systolic [...] Weight in lbs Pre/Post Dialysis Refused Weight 142.453342376517 BP Diastolic BP Location Tested BP Systolic [...] Weight in lbs Pre/Post Dialysis Refused Weight 147.774445854232 BP Diastolic BP Location Tested BP Systolic [...] Weight in lbs Pre/Post Dialysis Refused Weight 151.939403919623 BP Diastolic BP Location Tested BP Systolic [...] Weight in lbs Pre/Post Dialysis Refused Weight 156.637370540298 BP Diastolic BP Location Tested BP Systolic [...] Weight in lbs Pre/Post Dialysis Refused Weight 157.810784995419 BP Diastolic BP Location Tested BP Systolic [...] Weight in lbs Pre/Post Dialysis Refused Weight 160.512556200700 BP Diastolic BP Location Tested BP Systolic [...] Weight in lbs Pre/Post Dialysis Refused Weight 160.582259523043 BP Diastolic BP Location Tested BP Systolic [...] Weight in lbs Pre/Post Dialysis Refused Weight 162.342800918986 BP Diastolic BP Location Tested BP Systolic [...] Weight in lbs Pre/Post Dialysis Refused Weight 163.084865475066 BP Diastolic BP Location Tested BP Systolic [...] Type Weight in lbs Pre/Post Dialysis Refused 165.178003477125 BP Diastolic BP Location Tested BP Systolic BP Type 76 L arm 114 sitting Fetus Heart Rate Present A 150 Fetus Movement A Yes Comments Patient c/o of [place] , thinks contractions but isnt sure. [...] Estim ated Date of Delivery false Thalassemia (Mohawk, Albanian, Mediterranean, Or Background): MCV < 80 false Neural Tube Defect (Meningomyelocele, Spina Bifi da, Or Anencephaly) false Congenital Heart Defect false Down Syndrome false Greyson-Sachs (eg, Protestant, Cajun, Romansh-Albion) f alse Danial Disease false Sickle Cell Disease Or Trait () false Hemophilia Or Other Blood Disorders false Muscular Dystrophy false Cystic Fibrosis false Lititz's Chorea false Intellectual Disability/Autism false If Yes, [...] Complications Tubal Sterilization Discharge Date Comments Octisadora [facility] idural 39.6 Diana Quintero CNM Discharge Information Feeding Method Contraceptive Method Maternal HG B and HCT Levels Ob Episode Information Episode Created Date Number of Fetuses Patient Bloodtype Patient rh Status Prepregnancy Weight lbs Domestic Partner Domestic Partner Phone Father Name Higher Level Teaching Assistant Status 05/06/19 24 1 CLOSED Fetus Data First Name Last Name Admitted to NICU Weight (g) Sex Living Outcome Pediatric Complications Fetus ID Race Codes Race Delivery Type , Induced [id number] Darrell Calculation Initial Darrell Date Initial Exam [...]
--- OUTSIDE RECORDS SUMMARY | 2025-01-11 22:58 | XMS_ITS | Clinical Summary ---
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
--- OUTSIDE RECORDS SUMMARY | 2025-01-11 22:58 | XMS_ITS | Clinical Summary ---
Author Organization [facility] Address [address] [place] [address] Care Team Providers Care Rope Coiling Machine Operator Name Role Phone Miguel Abundio Johan VINSON Primary Care Provider [phone] Allergies No known active allergies Medications No [...] on file Legal Sex Female 8:47 AM VOICE INTERCEPT TECHNICIAN Gender Identity Not on file Sexual Orientation Not on file Obstetrics History Last Filed Vital Signs Vital Sign Reading Time Taken Comments Blood Pressure 114/52 04/18/2022 7:00 AM VOICE INTERCEPT TECHNICIAN Pulse 103 04/18/2022 7:00 AM VOICE INTERCEPT TECHNICIAN Temperature 36.1 C (96.9 F) 04/18/2022 3:06 AM VOICE INTERCEPT TECHNICIAN Respiratory Rate 16 04/18/2022 4:30 AM VOICE INTERCEPT TECHNICIAN Oxygen Saturation 100% 04/18/2022 7:00 AM VOICE INTERCEPT TECHNICIAN Inhaled Oxygen Concentration - - Weight 56.7 kg (125 lb) 04/18/2022 3:06 AM VOICE INTERCEPT TECHNICIAN Height 156.2 cm (5' 1.5) 11/08/2021 [...] patient's age to complete this topic Insurance [facility] Care Teams Rope Coiling Machine Operator Relationship Specialty Start Date End Date Abundio Rivera DO 2 [facility] [id number] [id number] PCP - General 01/16/17
== END 2025-01-11 22:13 | disposition left against medical advice (07) ==
LOC: ANHED 22:46
DX: N93.9 Abnormal uterine and vaginal bleeding, unspecified (principal)
CPT/HCPCS: 99199